=== PATIENT | male | born 1955 | race Caucasian/White ===

== ENCOUNTER 2018-10-02 11:09 | Emergency (ER) | payer MEDICARE ==
[~2018-10-02] VITALS: Ht 172.7 cm; Wt 90.7 kg
[~2018-10-02 11:09] MED LIST: FLEXERIL10 MG PO; KEFLEX500 MG PO; MOTRIN800 MG PO
== END 2018-10-02 13:04 | disposition short-term general hospital (02) ==
LOC: ED 11:09
DX: S71.112A Laceration without foreign body, left thigh, initial encounter (principal); Z79.899 Other long term (current) drug therapy; W29.8XXA Contact with other powered hand tools and household machinery, initial encounter; Y93.89 Activity, other specified; Y92.89 Other specified places as the place of occurrence of the external cause; Y99.8 Other external cause status